=== PATIENT | female | born 1950 | race Caucasian/White ===

== ENCOUNTER 2017-04-01 11:19 | Inpatient (IN) | payer MEDICARE, OTHER ==
[~2017-04-01] VITALS: Ht 175.3 cm; Wt 104.1 kg
[2017-04-01] VITALS (7 sets, daily range): BP systolic 108–128; BP diastolic 65–82; PULSE 77–103; RESP 12–19; O2SAT 91–100
--- NOTE | 2017-04-01 12:45 | DRSVH ---
PROCEDURE: CT BRAIN WITHOUT CONTRAST ([id number]) INDICATIONS: Stroke TECHNIQUE: Noncontrast 4.5 mm thick angled axial sections acquired from the foramen magnum to the vertex, with c oronal reformats. COMPARISON: None. FINDINGS: Image quality: Excellent. CSF spaces: Basal cisterns are patent. No extra-axial fluid collections. The ventricles are symmet ruth in size and shape. Brain: No intracranial bleeds or masses. There is cerebral volume loss for age, with resultant vent ricular and sulcal prominence. There are periventricular and deep white matter chronic small vessel ischemic changes. There is intracranial internal carotid artery atherosclerosis. There is a small f ocus of old left thalamic lacunar ischemia. Skull and face: Calvarium and visualized facial bones appear intact, without suspicious lesions. Sinuses: Visualized sinuses and mastoids are clear. IMPRESSION: 1. No acute intracranial process. 2. Mild atrophy and chronic microvascular ischemic changes. Dictated by: Philly Reeves M.D. on 04/01/2017 at 11:43 Approved by: Philly Reeves M.D. on 04/01/2017 at 11:44
--- NOTE | 2017-04-01 12:52 | ED.REPORT ---
HPI-Neurologic Deficit Date of Service Apr 01, 2017 ED Provider: Doc,Ed MD The patient is a 66 year old female who was sent to the emergency department by her PCP Dr. Sloan. 1 week ago the patient developed left sided weakness and was unable to walk for 2 days. She had a ground level fall when her symptoms began. The weakness has seemed to be intermittent since onset. The patient has been much more tired since the fall and is not acting like herself. She is still weak at this time and also complains of a mild headache and decreased appetite. She denies fever, chills, cough, chest pain, shortness of breath, abdominal pain, nausea, vomiting, diarrhea, dysuria or hematuria. She waited until after the weekend to see her PCP who then sent her here. Nursing Notes Stated Complaint: POSSIBLE STROKE Chief Complaint: Stroke Symptoms Nursing Notes Reviewed: Yes Allergies: Coded Allergies: dipyridamole (Verified Allergy, Severe, GI ISSUES, 04/01/17) nifedipine (Verified Allergy, Severe, HEADACHE, 04/01/17) sertraline (Verified Allergy, Intermediate, NAUSEA, 04/01/17) Scheduled Aspirin (Aspirin) 325 Mg Tablet 325 MG PO DAILY Fluoxetine (Prozac) 20 Mg Capsule 20 MG PO DAILY Gabapentin (Gabapentin) 300 Mg Capsule 600 MG PO HS Hydrochlorothiazide (Hydrochlorothiazide) 25 Mg Tablet 25 MG PO DAILY Insulin Detemir (Levemir Flextouch) 100 Unit/1 Ml Insuln.pen 60 UNIT SQ BID Insuln Asp Prt/Insulin Aspart (NovoLOG 70/30 U100 Insulin Flexpen) 100 Unit/Ml Unit 34 UNIT SUBQ TIDWM Lisinopril (Lisinopril) 20 Mg Tablet 20 MG PO DAILY Memantine (Namenda) 10 Mg Tablet 5 MG PO BID Pravastatin (Pravastatin) 20 Mg Tablet 20 MG PO HS Tolterodine Tartrate ER (Detrol LA) 4 Mg Capsule 4 MG PO DAILY General Time Seen by Provider: 12:55 Chief Complaint Other (left-sided weakness) Hx Obtained From: Patient, Spouse Arrived By: Wheelchair Sudden in Onset?: Yes Onset Occurred: 1 week ago Symptom Duration: Since onset Progression Since Onset: Intermittent Location: : Head Quality: Painful Severity: Current: Mild Severity: Maximum: Mild Recent Healthcare: No recent hospitalization, Recent doctor visit Similar Sx Previous: No Risk Factors NIH Stroke Scale Level of Consciousness: Alert and responsive (0) Ask Month & Age: Both questions right (0) Open/Close Eyes/Hand Chalk Tester: Performs both tasks (0) Horizontal EO Movements: None (0) Visual Lopes: No visual loss (0) Facial Palsy: Normal symmetry (0) Right Arm Motor Drift (10s): No drift 10 sec (0) Left Arm Motor Drift (10s): Drift, not touch bed (1) Right Leg Motor Drift (5s): No drift 5 sec (0) Left Leg Motor Drift (5s): Some effort v gravity (2) Limb Ataxia FNF/Heel-Wallace: No ataxia (0) Sensation (Arms/Legs/Face): No sensory loss (0) Language Aphasia: No aphasia, normal (0) Dysarthria: Slurring intelligible (1) Extinction/Inattention: No exctinct/inattent (0) NIHSS Score: 4 Time NIHSS Performed: 13:19 Date NIHSS Performed: Apr 01, 2017 Past Medical History Past Medical History Hypertension Diabetes mellitus Family History Noncontributory Smoking History Unknown if Ever Smoker Social History Other Social History: Good social support, , Local resident Ambulatory Status Independent Review of Systems Review of Systems Note: +decreased appetite, not acting like herself Constitutional: Reports: Fatigue, Denies: Chills, Fever Respiratory: Denies: Non-productive cough, Prod cough, bloody, Prod cough, brown, Prod cough, clear, Prod cough, green, Prod cough, white, Prod cough, yellow, Shortness of breath Cardiovascular: Denies: Chest pain GI: Denies: Abdominal pain, Diarrhea, Nausea Neurologic: Reports: Focal weakness, Headache, Problem walking, Weakness Psychiatric: Reports: Change mental status Complete sys rev & neg: except as marked. Physical Exam Initial Vital Signs Vital Signs (First) Date Time Temp Pulse Resp B/P Pulse Ox O2 Delivery O2 Flow Rate FiO2 04/01/17 11:22 36.9 103 16 108/78 97 Room Air Initial VS: Reviewed ENT: Mucous membranes moist, Conjunctiva normal, No scleral icterus Neck: Supple, Non-tender, Full range of motion Abdomen / GI: Soft, Non-tender, No guarding, No rebound, No distention Extremities: No swelling Skin: Warm, Dry, No cyanosis Alertness: Positive: Somnolent Head / Eyes: Atraumatic, Normocephalic, PERRL, EOMI Respiratory / Chest: Atraumatic, Breath sounds NL, Breath sounds = bilat, No respiratory distress, No rales, No rhonchi, No wheezing Cardiovascular: Heart rate NL, Regular rhythm, Heart sounds NL, Peripheral circulation NL Neurologic: Oriented X3, Speech NL Focal Weakness: Positive: Lower extremity L Drift on the left side. She is unable to pick her left leg up. Sensation intact. Interpretation & Diagnostics Lab Results Interpretation Result Diagram: 04/01/17 1431 04/01/17 1431 Test 04/01/17 14:31 04/01/17 15:15 White Blood Count 11.2th/mm3 (3.8-10.1) Red Blood Count 5.49mil/mm3 (3.90-5.20) Hemoglobin 14.6g/dL (12.0-15.6) Hematocrit 43.4% (35.0-46.0) Mean Corpuscular Volume 79.1fL (81-100) Mean Corpuscular Hemoglobin 26.6pg (27.0-35.0) Mean Corpuscular Hemoglobin Concent 33.6% (32.0-37.0) Red Cell Distribution Width 15.4% (12.3-15.4) Platelet Count 247bil/L (150-400) Neutrophils (%) (Auto) 61.5% (40-74) Lymphocytes (%) (Auto) 28.1% (14-46) Monocytes (%) (Auto) 9.1% (4-12) Eosinophils (%) (Auto) 0.5% (0-5) Basophils (%) (Auto) 0.4% (0-3) Prothrombin Time 10.7sec (8.1-12.5) Prothromb Time International Ratio 1.00ratio Activated Partial Thromboplast Time 26.6sec (22.8-33.0) Sodium Level 133mEq/L (134-144) Potassium Level 4.6mEq/L (3.5-5.2) Chloride Level 92mEq/L (97-108) Carbon Dioxide Level 25mmol/L (18-29) Blood Urea Nitrogen 30mg/dL (8-27) Creatinine 1.40mg/dL (0.57-1.00) Estimat Glomerular Filtration Rate 54mL/min (>59) Glucose Level 307mg/dL (60-99) Calcium Level 9.9mg/dL (8.5-10.1) Total Bilirubin 0.7mg/dL (0.0-1.2) Aspartate Amino Transf (AST/SGOT) 35U/L (0-50) Alanine Aminotransferase (ALT/SGPT) 34U/L (0-32) Alkaline Phosphatase 84U/L (25-165) Troponin T < 0.010ug/L (0.0-0.011) Total Protein 7.7g/dL (6.4-8.4) Albumin 3.5g/dL (3.4-5.0) Urine Color Yellow (YELLOW) Urine Appearance Clear (CLEAR,HAZY) Urine pH 5.5 (5.0-8.0) Urine Specific Round O 1.015 (1.003-1.035) Urine Protein Tracemg/dL (NEG,TRACE) Urine Glucose (UA) 1000mg/dL (NEGATIVE) Urine Ketones Negativemg/dL (NEGATIVE) Urine Occult Blood Negative (NEGATIVE) Urine Nitrite Negative (NEGATIVE) Urine Bilirubin Negative (NEGATIVE) Urine Urobilinogen Normalmg/dL (NORMAL) Urine Leukocyte Esterase Trace (NEGATIVE) Urine RBC 0-2/hpf (0-2) Urine WBC 11-50/hpf (0-5) Urine Epithelial Cells Few/hpf (NONE-MOD) Urine Crystals None seen (NONE SEEN) Urine Bacteria Few/hpf (NONE-FEW) Urine Hyaline Casts None/lpf (NONE) Urine Granular Casts None seen (NONE SEEN) Urine Waxy Casts None seen (NONE SEEN) Urine Red Blood Cell Casts None seen (NONE SEEN) Urine White Blood Cell Casts None seen (NONE SEEN) Urine Mucus None seen (None Seen) Urine Trichomonas None seen (NONE SEEN) Urine Yeast None (NONE SEEN) Urinalysis Comment None Urine Culture Reflexed Indicated ECG Interpretation ECG Interpretation: Sinus rhythm with a rate of 91 Time: 13:02 Interpreted by: ED physician CT Head Interpretation IMPRESSION: 1. No acute intracranial process. 2. Mild atrophy and chronic microvascular ischemic changes. Dictated by: Philly Reeves M.D. on 04/01/2017 at 11:43 Study: Head CT no contrast Interpretation / Wet Read by: Interpret - Radiologist Re-Eval/Medical Decision Source of Hx: Old records, Family Re-Evaluation/Progress : Time of Eval: 14:15 Re-Evaluation/Progress Note: Discussed plan for admission with the patient and her . All questions were addressed. Consultation : Referral / Consult Name: Jesús Campos MD Consulted With: Hospitalist Call Returned at: 14:42 Senior Systems Software Engineer: Will see patient, Agrees with eval, Agrees with plan, Accepts admit Counseled Regarding: Diagnosis, Lab results, Need for admission Discharge & Departure Impression: Primary Impression: Cerebrovascular accident CVA mechanism: unspecified Qualified Code: I63.9 - Cerebral infarction, unspecified Additional Impressions: Urinary tract infection Urinary tract infection type: acute cystitis Hematuria presence: without hematuria Qualified Code: N30.00 - Acute cystitis without hematuria Dehydration Disposition: ADMITTED TO HOSPITAL Discharge Condition All VS Reviewed: Yes Condition: Stable Referrals: Gadiel Sloan MD (PCP) Scribe Attestation Portions of this note were transcribed by Anusha Forte. I, Dr. Villanueva personally performed the history, physical exam and medical decision-making; I reviewed and confirmed the accuracy of the information in the transcribed note. Signed by: Vitaliy Alas, 04/01/2017 at 1500. copies to: Gadiel Sloan MD, Jena M MD Apr 01, 2017 12:52 Anusha Forte Apr 01, 2017 13:01
[2017-04-01 14:38] LABS: BASOPHILS % (AUTO) 0.4 % (0-3); EOSINOPHILS % (AUTO) 0.5 % (0-5); MONOCYTES % (AUTO) 9.1 % (4-12); Mean Corpuscular Hemoglobin 26.6 pg (27.0-35.0); Mean Corpuscular Volume 79.1 fL (81-100); NEUTROPHILS % (AUTO) 61.5 % (40-74); Platelet Count 247 bil/L (150-400)
[2017-04-01] MEDS ORDERED: ASPI325T32 PO (14:43)
[2017-04-01] MEDS ORDERED: INSU100I25 SQ (14:46)
[2017-04-01] MEDS ORDERED: DETROL LA4 M1 PO (14:46)
[2017-04-01] MEDS ORDERED: GABA-502 PO (14:46)
--- NOTE | 2017-04-01 14:46 | NUR ---
Evaluation completed. Please go to "Notes" then click on "Assessments and Notes" (bottom left corner of screen). Then select appropriate discipline tab on top of screen.
[2017-04-01] MEDS ORDERED: Ondansetron 2 mg/mL 2 mL Inj IVPUSH PRN (14:50)
[2017-04-01] MEDS ORDERED: INSU3INS3 SUBQ (14:52)
[2017-04-01] MEDS ORDERED: HYDR25TA4 PO (14:52)
[2017-04-01] MEDS ORDERED: LISI-567 PO (14:52)
[2017-04-01] MEDS ORDERED: NAM10 PO (14:52)
[2017-04-01] MEDS ORDERED: PROZ20 PO (14:53)
[2017-04-01] MEDS ORDERED: PRAV20TA2 PO (14:53)
--- NOTE | 2017-04-01 14:57 | PCM.HPMED ---
Subjective Date of Service Apr 01, 2017 Primary Provider: Admitting Physician: Primary Care Physician: Gadiel Sloan MD Attending Physician: Chief Complaint: weakness, somnolence History of Present Illness: 66 yo F w/ hx of TIA, uncontrolled DM, HTN, HLD p/w generalized weakness, changes of mental status, Hx obtained mostly by the at the bedside. He stated that she fell down 8days ago, since then she was progressively weaker, being more drowsy. patient at baseline is able to walk w/o assistance going shopping with her grandaughter. noticed, pt became slow to respond, soft spoken.Weakness was on and off, pt was able to walk 3-4days ago during last weekends, since this week. patient was getting weaker, came to see PCP today. noticed more weakness on left side, suspected acute stroke, sent patient to ED> In ED, VS 108 /78, 103, 16, 97% on RA, afebrile, labs showed mild wbc, poly61, bun30/cr1.4, mlm098, Na133, Cl92. UA showed trace leukEST, mpz50-49, few bacteria. patient received one dose of Rocephin. seen at ED at the bed side. patient stated that she was way to her sofa, stumbling to the left side when she fell. hurt her Lt knee. denied LOC per , headache, but was mildly lightheaded, denied chest pain, sob, palpitation, blurry vision.Patient also stated that she had more frequent urination 5-6times/d, which was worse than baseline incontinence, also noticed urgency, no dysuria. pt also had diarrhea since last week until 2days, had normal BM yesterday. pt currently denied any LORA, lightheadedness. pt has decreased appetite with weakness, but able to swallow Banana this morning. compliant to all her meds, including insulin. since this week, glc has been 200s per . patient did inject by herself. ROS: no fever, chills, cough, sputum, Ofnote. Patient has follow-up with Dr. Torres, last seen in 03/04, noted cognitive problems due to multifactorial in the setting of microvascular dz and poorly controlled DM. recommended cognitive rehab and speech tx, referred to neuro-psychology. For spells of decreased attentiveness, suspected probable TIA or seizure or both , EEG ordered. For diabetic neuropathy recommended to take gabapentin 3pills at bed times. MRI brain 09/2015 no evidence of stroke but moderate microvascular micro-bleeds likely due to HTN, again MRI repeated 03/19 showed Punctate susceptibility weighted hypointensities involving the thalami, basal ganglia, frontal lobes and the left cerebral hemisphere. US carotid was <50% stenosis consulted, recommended holding aspirin and get MRI. Review of Systems: Pertinent positives as noted in history of present illness. All other systems were reviewed and are negative Allergies Coded Allergies: dipyridamole (Verified Allergy, Severe, GI ISSUES, 04/01/17) nifedipine (Verified Allergy, Severe, HEADACHE, 04/01/17) sertraline (Verified Allergy, Intermediate, NAUSEA, 04/01/17) Home Medications Jessi RossiZachary [id number] 1950 04/01/2017 09:40 AM Page: 11/03 MEDICATIONS Medication Dose Sig Description Comments aspirin 325 mg tablet,delayed release 325 mg take 1 tablet (325MG) by oral route every day NATHANAEL CONTOUR BLOO STRP TEST THREE TO FOUR TIMES DAILY DETROL LA 4MG CAP 4 mg TAKE ONE CAPSULE BY MOUTH ONCE DAILY Leader Pen [place] 31g. For insulin administration 3-5 times daily gabapentin 300 mg capsule 300 mg take 2-3 tab at bedtime taking 2 in the evening and if needed takes an additional. LEVEMIR FLEXTOUCH INJ 100 unit/mL (3 mL) INJECT 60 UNITS SUBCUTANEOUSLY TWICE DAILY lisinopril 20 mg-hydrochlorothiazide 25 mg tablet 20 mg-25 mg TAKE ONE TABLET BY MOUTH IN THE MORNING need visit memantine 5 mg tablet 5 mg take 1 tablet by oral route 2 times every day metformin ER 500 mg tablet,extended release 24 hr 500 mg take 2 tablets by oral route 2 times every day not taking NOVOLOG FLEXPEN 100UNIT/ML INJ 100 unit/mL INJECT 34 UNITS SUBCUTANEOUSLY THREE TIMES DAILY BEFORE MEAL(S) pravastatin 20 mg tablet 20 mg 1 po QPM Prozac 20 mg capsule 20 mg TAKE ONE CAPSULE BY MOUTH ONCE DAILY IN THE MORNING. START IN 15 DAYS AFTER TAPERS OFF CYMBALTA PMH PANIC ATTACK ROSACEA Fatigue Beatriz CEREBROVASCULAR DISEASE Uncontrolled Type 2 diabetes mellitus, Last a1c10.3 in Memory lapses Vitamin d deficiency Screening for colon cancer Polyneuropathy in Diabetes Mixed hyperlipidemia Screening for breast cancer PERSONAL HISTORY OF ARTHRITIS Surgical History Bariatric surgery Gastric hernia repair Social History Hx Alcohol Use: No Hx Substance Use: No Smoking Status: Unknown if Ever Smoker Additional Information lives with Exam Vital Signs Vital Sign - Last Date Time Temp Pulse Resp B/P Pulse Ox O2 Delivery O2 Flow Rate FiO2 04/01/17 13:51 92 12 119/82 91 Room Air 04/01/17 11:22 36.9 Exam NAD, comfortably laying down on the bed no JVD, MMM, no LAD RRR, nl s1, s2 no mrg CTAB, no w,c S,ND,NT,normoactive BS+ warm, no edema, pulses 2/2 Neuro:speech coherent, but very slow to response, AAOx3, unable to assess gait PERRLA, EOMI, symmetric face, no uvulae tongue deviation, able shrug shoulders equally able rotate neck equally on both sides motor 5/5 throughout, sensory severely decreased on bilateral ext. Lab and Diagnostics Result Diagram: 04/01/17 1431 X-Rays, CTs and MRIs PROCEDURE: CT BRAIN WITHOUT CONTRAST ([id number]) INDICATIONS: Stroke TECHNIQUE: Noncontrast 4.5 mm thick angled axial sections acquired from the foramen magnum to the vertex, with coronal reformats. COMPARISON: None. FINDINGS: Image quality: Excellent. CSF spaces: Basal cisterns are patent. No extra-axial fluid collections. The ventricles are symmetric in size and shape. Brain: No intracranial bleeds or masses. There is cerebral volume loss for age , with resultant ventricular and sulcal prominence. There are periventricular and deep white matter chronic small vessel ischemic changes. There is intracranial internal carotid artery atherosclerosis. There is a small focus of old left thalamic lacunar ischemia. Skull and face: Calvarium and visualized facial bones appear intact, without suspicious lesions. Sinuses: Visualized sinuses and mastoids are clear. IMPRESSION: 1. No acute intracranial process. 2. Mild atrophy and chronic microvascular ischemic changes. Dictated by: Philly Reeves M.D. on 04/01/2017 at 11:43 Approved by: Philly Reeves M.D. on 04/01/2017 at 11:44 PROCEDURE: X-RAY CHEST ONE VIEW, PORTABLE ([id number]) INDICATIONS: 66 year-old female with weakness. TECHNIQUE: One view of the chest was acquired. COMPARISON: None. FINDINGS: Surgical changes and devices: Bilateral upper abdominal surgical clips are present. Lungs and pleura: No pleural effusions or pneumothorax. Lungs are clear. Mediastinum: Mediastinal contours appear normal. Heart size is normal. Bones and chest wall: No suspicious bony lesions. Overlying soft tissues appear unremarkable. IMPRESSION: No acute cardiopulmonary disease. Dictated by: Naun Ferrell M.D. on 04/01/2017 at 15:48 Approved by: Naun Ferrell M.D. on 04/01/2017 at 15:49 PROCEDURE: MRI BRAIN WITHOUT CONTRAST ([id number]) INDICATIONS: SPELLS OF ALTERED ALERTNESS WITH JAW CHANGES, TIA TECHNIQUE: Non-contrast axial T1 spin echo, axial T2 fast spin echo, sagittal and axial FLAIR, coronal T2 fast spin echo, axial gradient echo, axial diffusion and ADC through the brain. COMPARISON: Outside Film, MR, MR IAC'S MASTOIDS W&WO CON, 11/26/2008, 8:21. MR , STROKE PROTOCOL (PN), 01/17/2009, 7:58. Byron Waters, , MR BRAIN WO CON, 09/11/2015, 13:50. FINDINGS: Image quality: Excellent. CSF spaces: Ventricles appear symmetric in size and shape. Basal cisterns are patent. No extra-axial fluid collections. Brain: No intracranial bleeds or mass effects. There is cerebral volume loss for age. There are moderate periventricular and deep white matter chronic small vessel ischemic changes which are not significantly changed compared to . Brainstem appears normal. Diffusion-weighted images show no acute ischemic insults. Chronic, small, right centrum semiovale lacunar infarct is stable compared to 09/11/2015. Punctate foci of susceptibility weighted hypointensities noted in the thalami bilaterally, the frontal lobes bilaterally the basal ganglia and in the left cerebral hemisphere. Normal intravascular flow voids are present. Skull and face: Calvarial bone marrow is normal in signal. Orbits are normal. Sinuses: Small left maxillary sinus mucous retention cyst versus polyp is noted. mastoids are clear. IMPRESSION: 1. No acute intracranial disease process. 2. Mild, diffuse volume loss. 3. Moderate periventricular and subcortical white matter chronic microvascular ischemic changes. 4. Chronic right anterior centrum semiovale infarct. 5. Punctate susceptibility weighted hypointensities involving the thalami, basal ganglia, frontal lobes and the left cerebral hemisphere. Finding is nonspecific but is most concerning for chronic hypertensive microbleeds. Please correlate with clinical data. Dictated by: Lucrecia Jhaveri MD, PhD on 03/19/2017 at 16:33 Approved by: Lucrecia Jhaveri MD, PhD on 03/19/2017 at 16:42 Assessment & Plan Acute, active decrease of attentiveness, generalized weakness, POA, CTH no acute findings, multifactorial: new onset UTI, underlying microbleeds, probable new small ischemic stroke. no s/s of LEAD FABRICATOR infection. no hx of seizures. -given consistent microbleeds in multiple areas, hold off asa, awaits further input from -repeat MRI of brain -will monitor neurocheck q4h to see if MS improves with current tx probable UTI, POA, UA+ for pyuria, bacteriuria. labs mildly elevated leukocytosis, no SIRS -s/p Rocephin in ED, continue for now ground level fall >8days ago, likely due to above-mentioned problem. -telemetry -EKG -appreciate daily PT DM, POA, a1c>10 in Apr, uncontrolled, glc has been lebile 60-500 per hx -lantus 30unit bid, lispro SS low correctional for now, will adjust based on fsg -hold metformin -continue gabapentin Chronic, stable hx of CVA, hold off on asa, continue statin HTN, will continue BP meds given previous MRI findings, despite no acute bleeds in CTH cognitive dysfunction, will follow up with rec, continue prozac, memantin dispo:Patient will be admitted with inpatient status with expectation of inpatient therapy for more than 2 midnights diet:Puree, med crushed per s/s eval dvt ppx:SCD Full code Time spent 65 minutes Jesús Campos MD Apr 01, 2017 14:57
[2017-04-01] MEDS ORDERED: Glucose 40% Oral Gel 15 Gm Tube PO PRN (15:15)
[2017-04-01 15:17] LABS: TROPONIN T < 0.010 ug/L (0.0-0.011)
[2017-04-01] MEDS ORDERED: 0.9% Sodium Chloride 1,000 ML IV ONE (15:20)
[2017-04-01 15:28] LABS: APPEARANCE,URINE CLEAR (CLEAR,HAZY); COLOR,URINE YELLOW (YELLOW); OCCULT BLOOD,URINE NEGATIVE (NEGATIVE); PH,URINE 5.5 (5.0-8.0); UROBILINOGEN,URINE NORMAL (NORMAL)
[2017-04-01] MEDS ORDERED: cefTRIAXone Inj 1,000 MG in Dextrose 5% Minibag Plus 50 ML IV ONE (15:35)
--- NOTE | 2017-04-01 15:50 | DRSVH ---
PROCEDURE: X-RAY CHEST ONE VIEW, PORTABLE ([id number]) INDICATIONS: 66 year-old female with weakness. TECHNIQUE: One view of the chest was acquired. COMPARISON: None. FINDINGS: Surgical changes and devices: Bilateral upper abdominal surgical clips are present. Lungs and pleura: No pleural effusions or pneumothorax. Lungs are clear. Mediastinum: Mediastinal contours appear normal. Heart size is normal. Bones and chest wall: No suspicious bony lesions. Overlying soft tissues appear unremarkable. IMPRESSION: No acute cardiopulmonary disease. Dictated by: Naun Ferrell M.D. on 04/01/2017 at 15:48 Approved by: Naun Ferrell M.D. on 04/01/2017 at 15:49
--- NOTE | 2017-04-01 16:53 | NUR ---
Admit: Patient arrived to [facility] @ approx 1615 via stretcher. Transferred from stretcher to bed using slider board. 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 VSS. Oriented to room and call light system. at bedside. Denies pain and shortness of breath. Bed in low and locked position, bedrails up x2, yellow socks on for safety, call light within reach. Addendum: 04/01/17 at 1703 by EVERTON LESTER RN Telemetry box #[id number] on, SR 75 per home theatre technician.
[2017-04-01] MEDS: Insulin LISPRO 300 Unit/3 mL Inj SUBQ SCH ×2 (18:15→22:23)
[2017-04-01] MEDS ORDERED: Insulin GLARgine 100 Unit/mL Syringe SUBQ SCH (20:30)
--- NOTE | 2017-04-01 21:04 | DRSVH ---
PROCEDURE: MRI STROKE PROTOCOL ([id number]) Pre- and post-contrast brain MRI, non-contrast brain MR angiogram, pre- and postcontrast neck MR andi ogram INDICATIONS: 66 year-old female with poorly controlled diabetes, and cognitive deficits. TECHNIQUE: Brain: Noncontrast axial T1 spin echo, axial T2 fast spin echo, sagittal and axial FLAIR, coronal T2 fast spin echo, axial gradient echo, axial diffusion and ADC through the brain. After the administr ation of contrast, axial 3D VIBE of the cranial vasculature and brain. Brain MRA: Non-contrast 3-D time of flight MR angiogram, with multiple unwrrkx-pkwuzpawr-regtwzwisi (MIP) reformats performed. Neck MRA: Axial and sagittal TruFISP through the neck. Coronal dynamic MR angiogram during administ ration of contrast in the arterial and venous phases, with 3-dimenstional vgovnnk-wskermpzv-ozgwtlosl n (MIP) reformats constructed from subtraction images. COMPARISON: [facility], CT, CT BRAIN WO CON, 04/01/2017, 12:26. [facility], MR, MR BRAIN WO CON, 03/19/2017, 15:14. [facility], MR, STROKE PROTOCOL (PN), 009, 7:58. FINDINGS: Image quality: Excellent. BRAIN: CSF spaces: Ventricles are normal in size and shape. Basal cisterns are patent. No extra-axial flu id collections. Brain: No intracranial bleeds or mass effects. There is background periventricular and deep white ma tter chronic small vessel ischemic change. Diffusion weighted images demonstrate asymmetric acute isc hemic insult in a curvilinear distribution within the right anterior centrum semi-ovale. Brainstem a ppears normal. Normal intravascular flow voids are present. No abnormal intracranial enhancement. Skull and face: Calvarial marrow signal is normal. Patient is status post cataract surgeries. Sinuses: Sinuses and mastoids are clear. BRAIN MR ANGIOGRAM: Anterior circulation: Intracranial internal carotid arteries are normal in size and enhancement. Di ffuse stenosis within the right A1 and A2 segments appears new since 2008. The flow within the paired anterior cerebral arteries is normal and symmetric. The flow within the middle cerebral arteries is normal and symmetric. The anterior communicating artery is seen. No stenoses, occlusions, or aneur ysms. Posterior circulation: The visualized portions of the vertebral arteries demonstrate normal caliber, and join to form a normal appearing basilar artery. The flow within the posterior cerebral arteries is normal and symmetric. No stenoses, occlusions, or aneurysms. NECK MR ANGIOGRAM: Carotids: Great vessels demonstrate a conventional anatomy as they arise from the aortic arch. The origins of the common carotid arteries appear patent. The calibers and courses of both common caroti d arteries are normal. The bifurcation regions appear normal bilaterally. The internal carotid chidi anastacia demonstrate normal course and caliber. Posterior circulation: The origins of the co-dominant vertebral arteries appear patent. More superi or portions of both vertebral arteries demonstrate normal course and caliber, and join to form a norm al appearing basilar artery. Miscellaneous: Subclavian arteries appear patent. Pre-contrast images through the neck demonstrate diffuse thyromegaly. IMPRESSION: BRAIN MRI: 1. Findings consistent with evolving acute ischemic insult within the right anterior cerebral artery distribution. 2. Background periventricular and deep white matter chronic small vessel ischemic change. BRAIN MR ANGIOGRAM: Interval development of high grade narrowing of the right A1 and A2 segments since 2008, probably rep resenting intraluminal thrombus in the setting of corresponding acute ischemic insult. NECK MR ANGIOGRAM: No hemodynamically significant lesions of the extracranial neck vasculature. Dictated by: Naun Ferrell M.D. on 04/01/2017 at 20:46 Approved by: Naun Ferrell M.D. on 04/01/2017 at 21:03
[2017-04-02] VITALS (8 sets, daily range): BP systolic 122–148; BP diastolic 75–89; PULSE 69–97; RESP 16–18; O2SAT 94–97
--- NOTE | 2017-04-02 01:08 | NUR ---
Mobility Pt asked to use the restroom, 2X assist w/gait belt to BSC. Incontinent of bowel 1X, continent 1X. Pt has reported no pain. No CP or SOB. Her is sleeping in the room with her. Hourly rounding ongoing.
--- NOTE | 2017-04-02 05:41 | NUR ---
Activity See previous note by student RN. Pt remains on Tele SR, comfortable, and spouse in room. No further loose BM or incontinence this shift. Care continues
[2017-04-02 06:11] LABS: BASOPHILS % (AUTO) 0.3 % (0-3); MONOCYTES % (AUTO) 8.6 % (4-12); Mean Corpuscular Hemoglobin 26.9 pg (27.0-35.0); Mean Corpuscular Volume 80.5 fL (81-100); NEUTROPHILS % (AUTO) 52.6 % (40-74); Platelet Count 176 bil/L (150-400)
[2017-04-02 06:43] LABS: Magnesium 2.1 mg/dL (1.6-2.6); Phosphorus 4.6 mg/dL (2.5-4.9)
[2017-04-02] MEDS ORDERED: cefTRIAXone Inj 2,000 MG in Dextrose 5% Minibag Plus 50 ML IV SCH (07:30)
[2017-04-02] MEDS ORDERED: Insulin GLARgine 100 Unit/mL Syringe SUBQ SCH (08:30)
[2017-04-02] MEDS: Insulin LISPRO 300 Unit/3 mL Inj SUBQ SCH ×2 (10:21→12:08)
[2017-04-02] MEDS: Amoxicillin-Clav 500-125 mg Tablet PO SCH ×2 (10:21→20:52)
--- NOTE | 2017-04-02 10:45 | NUR ---
Case Management: IMM given and explained to pt and . Lisandra AMES RN
[2017-04-02] MEDS ORDERED: Insulin Human REGular Inj 100 UNIT in 0.9% Sodium Chloride-Pha MIX 100 ML IV SCH (12:40)
--- NOTE | 2017-04-02 12:44 | PCM.PNMED ---
Subjective Date of Service Apr 02, 2017 Subjective pt was more alert and remained oriented, fast to response, denied LORA, dizziness , c/o mild weakness on left side, eating well, MRI showed FERCHO territory infarc Exam Vital Signs Vital Sign - Last Date Time Temp Pulse Resp B/P Pulse Ox O2 Delivery O2 Flow Rate FiO2 04/02/17 12:03 36.9 78 18 139/86 94 Room Air Intake and Output 04/01/17 04/01/17 04/02/17 Cumulative From/Thru 15:00 23:00 07:00 04/01/17 11:22 - 04/02/17 06:26 Intake Total 200 ml 200 ml Output Total 300 ml 300 ml Balance -300 ml 200 ml -100 ml Intake Oral 200 ml 200 ml Output Urine Total 300 ml 300 ml # Bowel Movements 2 2 Exam NAD, comfortably laying down on the bed no JVD, MMM, no LAD RRR, nl s1, s2 no mrg CTAB, no w,c S,ND,NT,normoactive BS+ warm, no edema, pulses 2/2 Neuro:speech coherent, but very slow to response, AAOx3, unable to assess gait PERRLA, EOMI, symmetric face, no uvulae tongue deviation, able shrug shoulders equally able rotate neck equally on both sides motor 5/5 throughout, sensory severely decreased on bilateral ext. IVs and Medications Medications Reviewed: Medications were reviewed in detail Lab and Diagnostics Result Diagram: 04/02/17 0535 04/02/17 0535 X-Rays, CTs and MRIs PROCEDURE: CT BRAIN WITHOUT CONTRAST ([id number]) INDICATIONS: Stroke TECHNIQUE: Noncontrast 4.5 mm thick angled axial sections acquired from the foramen magnum to the vertex, with coronal reformats. COMPARISON: None. FINDINGS: Image quality: Excellent. CSF spaces: Basal cisterns are patent. No extra-axial fluid collections. The ventricles are symmetric in size and shape. Brain: No intracranial bleeds or masses. There is cerebral volume loss for age , with resultant ventricular and sulcal prominence. There are periventricular and deep white matter chronic small vessel ischemic changes. There is intracranial internal carotid artery atherosclerosis. There is a small focus of old left thalamic lacunar ischemia. Skull and face: Calvarium and visualized facial bones appear intact, without suspicious lesions. Sinuses: Visualized sinuses and mastoids are clear. IMPRESSION: 1. No acute intracranial process. 2. Mild atrophy and chronic microvascular ischemic changes. Dictated by: Philly Reeves M.D. on 04/01/2017 at 11:43 Approved by: Philly Reeves M.D. on 04/01/2017 at 11:44 PROCEDURE: X-RAY CHEST ONE VIEW, PORTABLE ([id number]) INDICATIONS: 66 year-old female with weakness. TECHNIQUE: One view of the chest was acquired. COMPARISON: None. FINDINGS: Surgical changes and devices: Bilateral upper abdominal surgical clips are present. Lungs and pleura: No pleural effusions or pneumothorax. Lungs are clear. Mediastinum: Mediastinal contours appear normal. Heart size is normal. Bones and chest wall: No suspicious bony lesions. Overlying soft tissues appear unremarkable. IMPRESSION: No acute cardiopulmonary disease. Dictated by: Naun Ferrell M.D. on 04/01/2017 at 15:48 Approved by: Naun Ferrell M.D. on 04/01/2017 at 15:49 PROCEDURE: MRI BRAIN WITHOUT CONTRAST ([id number]) INDICATIONS: SPELLS OF ALTERED ALERTNESS WITH JAW CHANGES, TIA TECHNIQUE: Non-contrast axial T1 spin echo, axial T2 fast spin echo, sagittal and axial FLAIR, coronal T2 fast spin echo, axial gradient echo, axial diffusion and ADC through the brain. COMPARISON: [facility], MR, MR IAC'S MASTOIDS W&WO CON, 11/26/2008, 8:21. MR , STROKE PROTOCOL (PNL), 01/17/2009, 7:58. [facility] [place], , MR BRAIN WO CON, 09/11/2015, 13:50. FINDINGS: Image quality: Excellent. CSF spaces: Ventricles appear symmetric in size and shape. Basal cisterns are patent. No extra-axial fluid collections. Brain: No intracranial bleeds or mass effects. There is cerebral volume loss for age. There are moderate periventricular and deep white matter chronic small vessel ischemic changes which are not significantly changed compared to . Brainstem appears normal. Diffusion-weighted images show no acute ischemic insults. Chronic, small, right centrum semiovale lacunar infarct is stable compared to 09/11/2015. Punctate foci of susceptibility weighted hypointensities noted in the thalami bilaterally, the frontal lobes bilaterally the basal ganglia and in the left cerebral hemisphere. Normal intravascular flow voids are present. Skull and face: Calvarial bone marrow is normal in signal. Orbits are normal. Sinuses: Small left maxillary sinus mucous retention cyst versus polyp is noted. mastoids are clear. IMPRESSION: 1. No acute intracranial disease process. 2. Mild, diffuse volume loss. 3. Moderate periventricular and subcortical white matter chronic microvascular ischemic changes. 4. Chronic right anterior centrum semiovale infarct. 5. Punctate susceptibility weighted hypointensities involving the thalami, basal ganglia, frontal lobes and the left cerebral hemisphere. Finding is nonspecific but is most concerning for chronic hypertensive microbleeds. Please correlate with clinical data. Dictated by: Lucrecia Jhaveri MD, PhD on 03/19/2017 at 16:33 Approved by: Lucrecia Jhaveri MD, PhD on 03/19/2017 at 16:42 Assessment & Plan Acute, active decrease of attentiveness, generalized weakness, POA, CTH no acute findings, MRI showed new ischemic stroke in FERCHO territories, likely subacute given hx -continue aspirin, statin -PT, OT, s/s, optimize dispo. -discussed at length regarding controlling risk factors UTI, POA, UA+ for pyuria, bacteriuria. labs mildly elevated leukocytosis, resolved, no SIRS, UCX showed beta strep -s/p Rocephin for 2days, switch to Augmentin to finish 5days course ground level fall >8days ago, likely in the setting of acute stroke -appreciate daily PT DM, POA, a1c>10 in Apr, uncontrolled, glc has been lebile 60-500 per hx, fsg>400 , remained uncontrolled -increase lantus 50unit bid, will try insulin gtt until <200, then switch back to lispro highcorrectional SS -hold metformin -continue gabapentin -pt needs endocrine follow up for further DM management. Chronic, stable HTN, hold BP meds, cognitive dysfunction, will follow up with Dr.Brettel duran, continue prozac, memantin dispo:1-2more days, optimize dispo. likely SNF diet:Puree, med crushed per s/s eval dvt ppx:SCD Full code VTE Mechanical Devices: Intermittant Pneumatic CD Time spent 35min Jesús Campos MD Apr 02, 2017 12:40
--- NOTE | 2017-04-02 14:39 | NUR ---
Social Work: Initial Assessment D: EMR reviewed. Pt is a 66 y/o female admitted for CVA per H&P. DAVID met with pt and spouse at bedside to conduct initial assessment. Pt was not an accurate historian due to CVA. SW explained role and wrote phone number on white board. SW conducted initial assessment with spouse, Maximiliano Rossi ([phone]) who can be contacted for discharge planning.SW provided pt and spouse with DPOA/advanced directive ppw at spouses request and encouraged pt and spouse to provide a copy to the hospital when complete. Pt's insurance is Medicare and [employer]. Pt's PCP is Gadiel Sloan MD. Pt has no Hx of HH or SNF. Pt has no LTC or VA insurance. Pt is independent with ADLs. Pt owns a cane but no other DME. Pt does not drive. Pt is independent at baseline. Pt lives with her spouse in a single-story double-wide trailer with a ramp to enter in [place]. recommends SNF for pt as of 04/01. placed SW consult to discuss SNF with pt. SW provided pt and spouse with choice list. Pt and spouse will discuss and choose SNF /3. SW will follow-up with pt for SNF choice. SW will continue to follow for needs. A: Pt for whom a SNF has been deemed medically necessary. P: Pt likely to discharge to SNF. SW to follow-up with pt and spouse 3 for SNF choice. SW will continue to follow for needs. LISA Avila Addendum: 04/02/17 at 1446 by ELIF HANDLEY Amended: Links added.
--- NOTE | 2017-04-02 14:50 | NUR ---
NUTRITION ASSESSMENT: ASSESS: 66YO F admit with CVA. Diet texture modified per ST, appears well tolerated with good po intake. Pt noted to have A1c of >10 in January per MD notes. PMHX:DM,HTN,TIA DIET: Puree Thin Liquids. PO 75% x 1 meal LABS: Alb 3.2, Glu 345 MEDS:Reviewed GI:2 BM 6/2 WEIGHT: 104.1kg BMI: 33.9 EST.NEEDS: OBESITY (20-22kcal/kg;1.2-1.5g/kg IBW) Kcal: 1058-3169 Pro: 80-100g NUTRITION DIAGNOSIS: (1) Chew/swallowing difficulty related to dysphagia as evidenced by modified diet texture per ST. (2) Altered nutrition related laboratory values related to uncontrolled diabetes as evidenced by A1c >10 in January, glu 345. INTERVENTION: (1) Diet per ST (2) Will discuss diabetic diet and provide materials for outpatient diabetic program, possible referral if pt amenable. MONITOR/EVALUATE: PO intake, texture tolerance, labs. F/U per moderate risk.
--- NOTE | 2017-04-02 15:08 | CONS ---
[address] [address] CONSULTATION REPORT PATIENT: HUNTER SPARROW : 1950 MR#: [id number] ADMIT: 04/01/2017 JOB ID: [id number] DATE OF SERVICE: 04/02/2017 NEUROLOGY CONSULT: REQUESTING PHYSICIAN: Dr. Campos. REASON FOR CONSULTATION: Acute stroke. HISTORY OF PRESENT ILLNESS: The patient is a 66-year-old female, known to me, who was admitted with left hemiplegia and aphasia from her primary care physician's office. Symptoms began last Wednesday after a fall. Her Rodriguez who is at the bedside and helps to provide the history states that she had had weakness on the left side for quite some time and did not think that it was an acute change. He does admit that she laid on the floor all night because he could not get her up. She began having speech problems on Wednesday morning. He made an appointment to see Dr. Sloan, who sent them to the emergency department with concern for acute stroke. I have personally reviewed the MRI of the brain done stroke protocol from April 01, 2017, which shows an acute stroke in the right anterior circulation with diffuse stenoses in the right A1 and A2 segments. This study was not compared to the previous study completed earlier in the month on the other magnet that shows multiple areas of susceptibility weighted abnormalities consistent with microhemorrhages from hypertension. There were no other areas of significant stenosis on the intracranial or extracranial arteries. The patient's reports that although his was completely hemiplegic this has gradually improved and today, she is able to lift her arm and leg on the left side without difficulty. The previously seen speech problems have now resolved but were not clearly identified. Rodriguez, the patient's , reports she is now able to speak but with slowed responses. Cognitively, she appears otherwise intact. In the emergency department she was noted to have a normal blood pressure. She also had a UTI. Her diabetes is poorly controlled with fluctuating levels even at home. Glucose was 345 this a.m. The patient's cardiac rhythm has been normal sinus rhythm. Her reports that she was diagnosed with borderline sleep apnea. He states that she only sleeps between 4 a.m. and noon every day. PAST MEDICAL HISTORY, SOCIAL HISTORY, FAMILY HISTORY AND DRUG ALLERGIES: Unchanged from the neurology outpatient consultation note in [facility] dated March 04, 2017. REVIEW OF SYSTEMS: As per the history of present illness. All other systems were reviewed and reported as negative except as noted above. MEDICATIONS: 1. Aspirin 162 mg aspirin. 2. Prozac. 3. Namenda. 4. Oxacillin. 5. Gabapentin. 6. Pravastatin 20 mg. 7. Ondansetron. 8. Tylenol. 9. Dextrose p.r.n. None given. PHYSICAL EXAMINATION: The patient's vital signs are stable. Blood pressure 138/86, pulse oximetry 94%. Pulse is 74, respiratory rate 18. The patient is afebrile. Head normocephalic, atraumatic. No evidence of carotid bruits. Lungs clear to auscultation. Cardiac: Regular rate and rhythm. S1, S2 present. No edema or lesions noted. NEUROLOGIC EXAMINATION: The patient is alert and oriented x3, with language and speech intact and fluent. Slowed answers but no obvious cognitive impairment or encephalopathy. Mood euthymic. Cranial nerves: Pupils equally reactive to light and accommodation. Extraocular movements intact. No facial asymmetry. Sensation intact on the face bilaterally. Tongue midline. Palate raises symmetrically. Visual ugalde show diminished right visual hemifield bilaterally. Motor strength: Pronator drift and 4/5 strength noted on the left compared to the right. Deep tendon reflexes 1+ throughout symmetrically with plantar reflex extensor on the left, plantar on the right. Tone: Intact upper and lower extremities. Sensation: Diminished to pinprick and soft touch left side compared to the right. No double simultaneous extinction. Coordination: Intact when strength is taken into consideration throughout. Gait: Deferred due to weakness. LABORATORY STUDIES: As per the history of present illness. LDL cholesterol 20. Creatinine 1.05. IMAGING STUDIES: As per the history of present illness. Acute stroke in the right anterior circulation with A1 stenosis. IMPRESSION AND RECOMMENDATION: The patient is a 66-year-old female with acute stroke in the right anterior circulation associated with left hemiplegia. The patient's symptoms are improving. The last MRI also showed evidence of susceptibility weighted abnormalities consistent with hypertensive microbleeds. The patient's cholesterol is low but glucose is poorly controlled, and she appears to have sleep problems. Echocardiogram is still pending. I did not see the echocardiogram requested at this time, and we will defer to the hospitalist to make sure the entire stroke order set is followed for this acute stroke patient. Her presentation is somewhat problematic given the microhemorrhages. Since this was an ischemic stroke, however, I did not recommend discontinuation of aspirin. I would recommend 81 mg aspirin, however, and not a higher dose. Although there is evidence of intracranial stenosis, the patient's cholesterol levels are extremely low and increasing anticholesterol medications may increase the chance of intracranial bleeding. Further and more aggressive management of the patient's diabetes, encouraging weight loss and evaluating for sleep apnea or sleep-related issues causing her insomnia is advised. I suggested overnight pulse oximetry to get a sense of pulse ox. I am available to discuss this patient further as needed. I agree with rehab and followup with her primary care physician for management of her cardiovascular risks. Please call if needed. Will sign off for now. LEATHA
[2017-04-02] MEDS ORDERED: Dextrose 5% 0.45% NaCl 1,000 ML IV PRN (16:02)
--- NOTE | 2017-04-02 19:18 | NUR ---
Neuro Pt is alert and oriented. Slight left-sided weakness. She is able to move all extremeties. Speech delay has improved throughout shift. Pt is tolerating pureed diet with thins, no signs symptoms of aspiration. Pt up with PT today but demonstrated increased left sided weakness, dizziness and lightheadedness.
[2017-04-03] VITALS (8 sets, daily range): BP systolic 104–140; BP diastolic 67–87; PULSE 83–99; RESP 16–18; O2SAT 95–96
--- NOTE | 2017-04-03 05:56 | NUR ---
Neuro / Insulin gtt Pt neuro checks remain unchanged- slight L pupil delay, slight L scaffolding helper weakness. Pt did not ambulate or get OOB this shift, incontinent of urine. No evidence of aspiration. remains in room. Pt A/O and responds slowly. Insulin GTT reaches goal range 6/2 at 2255 and remains in goal. Pt intake one ensure shake and one chocolate pudding this shift, minimal appetite and does not enjoy pureed foods. Care continues.
[2017-04-03] MEDS: Amoxicillin-Clav 500-125 mg Tablet PO SCH ×2 (08:14→22:45)
[2017-04-03] MEDS ORDERED: Insulin GLARgine 100 Unit/mL Syringe SUBQ SCH (08:30)
[2017-04-03] MEDS: Insulin Human REGular Inj 100 UNIT in 0.9% Sodium Chloride-Pha MIX 100 ML IV SCH ×2 (10:55→21:32)
--- NOTE | 2017-04-03 12:52 | PCM.PNMED ---
Subjective Date of Service Apr 03, 2017 Subjective pt is more alert, doing well, denied anyother complaints, still weak on left but close to baseline, aspirin switched to 81mg per Exam Vital Signs Vital Sign - Last Date Time Temp Pulse Resp B/P Pulse Ox O2 Delivery O2 Flow Rate FiO2 04/03/17 10:32 99 04/03/17 09:43 36.5 16 125/82 96 Room Air Intake and Output 04/02/17 04/02/17 04/03/17 Cumulative From/Thru 15:00 23:00 07:00 04/01/17 11:22 - 04/03/17 06:27 Intake Total 829 ml 745 ml 1774 ml Output Total 842 ml 697 ml 1839 ml Balance -13 ml 48 ml -65 ml Intake Oral 680 ml 150 ml 1030 ml IV Total 149 ml 595 ml 744 ml Output Urine Total 842 ml 697 ml 1839 ml # Bowel Movements 0 2 Exam NAD, comfortably laying down on the bed no JVD, MMM, no LAD RRR, nl s1, s2 no mrg CTAB, no w,c S,ND,NT,normoactive BS+ warm, no edema, pulses 2/2 Neuro:speech coherent,AAOX3, appropriately answered, CN2-12 grossly intact IVs and Medications Medications Reviewed: Medications were reviewed in detail Lab and Diagnostics Result Diagram: 04/02/17 0535 04/03/17 0540 X-Rays, CTs and MRIs PROCEDURE: CT BRAIN WITHOUT CONTRAST ([id number]) INDICATIONS: Stroke TECHNIQUE: Noncontrast 4.5 mm thick angled axial sections acquired from the foramen magnum to the vertex, with coronal reformats. COMPARISON: None. FINDINGS: Image quality: Excellent. CSF spaces: Basal cisterns are patent. No extra-axial fluid collections. The ventricles are symmetric in size and shape. Brain: No intracranial bleeds or masses. There is cerebral volume loss for age , with resultant ventricular and sulcal prominence. There are periventricular and deep white matter chronic small vessel ischemic changes. There is intracranial internal carotid artery atherosclerosis. There is a small focus of old left thalamic lacunar ischemia. Skull and face: Calvarium and visualized facial bones appear intact, without suspicious lesions. Sinuses: Visualized sinuses and mastoids are clear. IMPRESSION: 1. No acute intracranial process. 2. Mild atrophy and chronic microvascular ischemic changes. Dictated by: Philly Reeves M.D. on 04/01/2017 at 11:43 Approved by: Philly Reeves M.D. on 04/01/2017 at 11:44 PROCEDURE: X-RAY CHEST ONE VIEW, PORTABLE ([id number]) INDICATIONS: 66 year-old female with weakness. TECHNIQUE: One view of the chest was acquired. COMPARISON: None. FINDINGS: Surgical changes and devices: Bilateral upper abdominal surgical clips are present. Lungs and pleura: No pleural effusions or pneumothorax. Lungs are clear. Mediastinum: Mediastinal contours appear normal. Heart size is normal. Bones and chest wall: No suspicious bony lesions. Overlying soft tissues appear unremarkable. IMPRESSION: No acute cardiopulmonary disease. Dictated by: Naun Ferrell M.D. on 04/01/2017 at 15:48 Approved by: Naun Ferrell M.D. on 04/01/2017 at 15:49 PROCEDURE: MRI BRAIN WITHOUT CONTRAST ([id number]) INDICATIONS: SPELLS OF ALTERED ALERTNESS WITH JAW CHANGES, TIA TECHNIQUE: Non-contrast axial T1 spin echo, axial T2 fast spin echo, sagittal and axial FLAIR, coronal T2 fast spin echo, axial gradient echo, axial diffusion and ADC through the brain. COMPARISON: Outside Film, MR, MR IAC'S MASTOIDS W&WO CON, 11/26/2008, 8:21. MR , STROKE PROTOCOL (PNL), 01/17/2009, 7:58. Mono Davison, , MR BRAIN WO CON, 09/11/2015, 13:50. FINDINGS: Image quality: Excellent. CSF spaces: Ventricles appear symmetric in size and shape. Basal cisterns are patent. No extra-axial fluid collections. Brain: No intracranial bleeds or mass effects. There is cerebral volume loss for age. There are moderate periventricular and deep white matter chronic small vessel ischemic changes which are not significantly changed compared to . Brainstem appears normal. Diffusion-weighted images show no acute ischemic insults. Chronic, small, right centrum semiovale lacunar infarct is stable compared to 09/11/2015. Punctate foci of susceptibility weighted hypointensities noted in the thalami bilaterally, the frontal lobes bilaterally the basal ganglia and in the left cerebral hemisphere. Normal intravascular flow voids are present. Skull and face: Calvarial bone marrow is normal in signal. Orbits are normal. Sinuses: Small left maxillary sinus mucous retention cyst versus polyp is noted. mastoids are clear. IMPRESSION: 1. No acute intracranial disease process. 2. Mild, diffuse volume loss. 3. Moderate periventricular and subcortical white matter chronic microvascular ischemic changes. 4. Chronic right anterior centrum semiovale infarct. 5. Punctate susceptibility weighted hypointensities involving the thalami, basal ganglia, frontal lobes and the left cerebral hemisphere. Finding is nonspecific but is most concerning for chronic hypertensive microbleeds. Please correlate with clinical data. Dictated by: Lucrecia Jhaveri MD, PhD on 03/19/2017 at 16:33 Approved by: Lucrecia Jhaveri MD, PhD on 03/19/2017 at 16:42 Assessment & Plan Acute, active decrease of attentiveness, left sided weakness, POA, CTH no acute findings, MRI showed new ischemic stroke in Rt [place]ER[place] territories, likely subacute given hx -continue aspirin s/p 325, 162mg, changed to 81mg today,continue statin -PT, OT, s/s, optimize dispo, SNF -discussed at length regarding controlling risk factors -TTE to see emboli UTI, POA, UA+ for pyuria, bacteriuria. labs mildly elevated leukocytosis, resolved, no SIRS, UCX showed beta strep -s/p Rocephin for 2days, switch to Augmentin to finish 5days course ground level fall >8days ago, likely in the setting of acute stroke -appreciate daily PT DM, POA, a1c>10 in Apr, uncontrolled, glc has been lebile 60-500 per hx, fsg>400 , insulin gtt /- -controlled with insulin gtt, will bridge with lantus home dose, -lantus 50unit bid, lispro high correctional SS -hold metformin -continue gabapentin -pt needs endocrine follow up for further DM management. Chronic, stable HTN, continue bp meds cognitive dysfunction, will follow up with Dr.Brettel duran, continue prozac, memantin dispo:1-2more days, optimize dispo. likely SNF diet:Puree, med crushed per s/s eval dvt ppx:SCD Full code VTE Mechanical Devices: Intermittant Pneumatic CD Time spent 35min Jesús Campos MD Apr 03, 2017 12:52
--- NOTE | 2017-04-03 13:15 | NUR ---
neuro pt feels "almost normal" now, she still feels like she is not thinking quite as clearly as she normally does, speech is a little delayed but clear, no problems with swallow noted, on Puree/thin fluids. 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 She was able to get up off bed and onto BSC with only SBA, maybe slightly unsteady
--- NOTE | 2017-04-03 13:59 | NUR ---
Social Work: Continued Discharge Planning D: EMR reviewed. SW met with pt and spouse at bedside to determine SNF choice. Pt and spouse chose [facility]. SW made referral to [facility] and gave access. PASSR completed, faxed, and placed in chart. PPW in chart. Aristeo from [facility] confirmed pt has been accepted with Dr. Sloan to follow. SW updated pt and spouse on acceptance. Pt and spouse agreeable to plan. A: Pt for whom a SNF has been deemed medically necessary. P: Per Aristeo at [facility], pt has been accepted at [facility] with Dr. Sloan to follow. Pt and family agreeable to placement and discharge plan. PASSR faxed and in chart. PPW in chart. Access given SW will continue to follow. LISA Avila
--- NOTE | 2017-04-03 18:46 | DRSVH ---
[facility] [address] [place] [address] Echocardiogram Report Name: HUNTER SPARROW WStudy Date: Height: 69 in Hospital Exam Location: [facility] Weight: 229 lb Gender: Female BSA: 2.2 m2 : 1950 Age: 66 yrs BP: 131/84 mmHg Reason For Study: CVA Ordering Physician: Performed By: Adelaida Ruiz Referring Physician: Lee Sloan Interpretation Summary 1. Normal left ventricular size, wall thickness and normal to hyperdynamic systolic function with an estimated EF of 65 to 70% 2. Small right ventricular cavity size with normal systolic function. 3. Aortic valve sclerosis without stenosis or insufficiency 4. Saline contrast showed no evidence for an interatrial shunt. Procedure: A two-dimensional transthoracic echocardiogram with color flow and Doppler was performed. The study quality was technically adequate. There is no prior echocardiogram noted for this patient. The patient was in normal sinus rhythm during the exam. Left Ventricle: The left ventricle is normal in size. There is normal left ventricular wall thickness. Mildly elevated outflow tract velocities. The ejection fraction is estimated to be 65-70%. The E/A ratio is reversed with an elevated E/E', suggesting impaired early relaxation of the left ventricle with possible increased filling pressures. Right Ventricle: Small ventricular cavity size. The right ventricular systolic function is normal. Atria: The left atrium is mildly dilated. Right atrial size is normal. Injection of contrast documented no interatrial shunt. Mitral Valve: The mitral valve leaflets appear borderline thickened, but open well. The mitral valve leaflets are slightly calcified. There is trace mitral regurgitation. Aortic Valve: The aortic valve opens well. There is mild aortic valve sclerosis. The aortic valve is trileaflet. No aortic regurgitation is present. Tricuspid Valve: The tricuspid valve leaflets are thin and pliable. There is a trace or physiologic amount of tricuspid regurgitation. Right ventricular systolic pressure is estimated to be 18 mmHg plus the clinically estimated CVP which cannot be estimated on this exam. Pulmonic Valve: The pulmonic valve is not well seen, but is grossly normal. There is no pulmonic valvular regurgitation. Great Vessels: The aortic root is normal size. The ascending aorta is mildly enlarged. The diameter of the ascending aorta is 4.12 cm. The inferior vena cava was not visualized. Pericardium/ Pleura There is no pericardial effusion. There is no pleural effusion. MMode/2D Measurements & Calculations LVIDd: 4.8 cm LA dimension: 4.7 cm RA long axis Ao root diam LVIDs: 2.4 cm FS: 49.3 % LA A2 area: 23.3 cm RA area Aortic Jxn: 2.8 cm IVSd: 1.1 cm LA A4 area: 23.9 cm asc Aorta Diam LVPWd: 0.92 cm LA length (vol) : 9.0 cm RA vol Ao Arch Diam (Prox LA vol: 85.9 ml : 12.6 ml Trans): 2.5 cm LA vol index RA : 5.8 mm/ : 39.3 ml/m2 RVDd major : 4.7 cm LV manuel. diameter/BSA LV sys. diameter/BSA RVD1 (basal) RVD2 (mid): 1.7 cm (cm/m^2): 2.2 (cm/m^2): 1.1 Doppler Measurements & Calculations Ao V2 max MV E max jesus alberto MV E/A: 0.61 TR max jesus alberto : 134.0 cm/sec : 64.8 cm/sec Med Peak E' Jesus Alberto : 212.5 cm/sec Ao max PG MV A max jesus alberto TR max PG : 7.2 mmHg : 105.5 cm/sec E/E' med: 15.4 : 18.1 mmHg Ao mean PG MV P1/2t: 90.7 msec Lat Peak E' Jesus Alberto PA V2 max : 104.1 cm/sec sev ratio E/E' lat: 8.1 PA mean PG E/e' average: 11.8 MV A dur: 0.13 sec PA Accel Time : 0.10 sec MV dec time MV P1/2t max jesus alberto Ao V2 mean LV V1 max PG : 0.31 sec : 85.2 cm/sec MVA(P1/2t): 2.4 cm2 Ao V2 VTI: 25.4 cm LV V1 VTI: 26.6 cm PA V2 mean : 63.1 cm/sec Reading Physician:06:45 PM
[2017-04-04 05:30] VITALS: BP 135/79; PULSE 80; RESP 17; O2SAT 96
[2017-04-04 05:54] VITALS: PULSE 80
--- NOTE | 2017-04-04 07:27 | NUR ---
Activity/improvements Pt speech remains somewhat delayed, activity increase as pt ambulated to BR 2x this shift. Some small incontinence of bm. No complaints of pain. Remains on insulin gtt. Care continues
[2017-04-04] MEDS ORDERED: Glucose 40% Oral Gel 15 Gm Tube PO PRN (07:45)
[2017-04-04] MEDS ORDERED: Insulin LISPRO 300 Unit/3 mL Inj SUBQ SCH (08:00)
[2017-04-04] MEDS: Insulin LISPRO High-Dose Scale SUBQ SCH ×2 (08:00→11:12)
[2017-04-04] MEDS: Amoxicillin-Clav 500-125 mg Tablet PO SCH (08:12)
[2017-04-04 08:28] VITALS: BP 160/83; PULSE 73; RESP 16; O2SAT 96
[2017-04-04] MEDS ORDERED: Insulin GLARgine 100 Unit/mL Syringe SUBQ SCH (08:30)
[2017-04-04] MEDS ORDERED: AMOX1TAB11 PO (10:04)
[2017-04-04] MEDS ORDERED: ASPI81TA3 PO (10:04)
[2017-04-04 10:06] VITALS: PULSE 110
--- NOTE | 2017-04-04 10:12 | PCM.DIMED ---
Discharge Instructions Date of Service Apr 04, 2017 Dates of Hospitalization Apr 01, 2017 at 15:19 Discharge Diagnosis Discharge Diagnosis Acute ischemic stroke, in [place] territories, mild deficit on Left side Urinary tract infection with Beta streptococcus Acute kidney injury uncontrolled diabetes Medication Instructions Additional med instructions Please note that your aspirin dose was changed to 81mg daily Please continue your home insulin regimen Please continue antibiotics Augmentin 2more days Given your kidney injury, HCTZ dose was changed to 12.5mg from 25mg, it could be adjusted by your PCP later in the clinic Diet Discharge Diet: Heart Healthy, Diabetic Activity Discharge Activity: No restrictions Patient Instructions Patient Instructions you were hospitalized with symptoms concerning for stroke. MRI was consistent to acute ischemic(blockage) stroke. You also found to have urinary tract infection. Please note that you have to continue to work with physical therapy until you gain more motor strength. you are discharged to Short term rehab. Please note that your sugar was very difficult to control, recommended further evaluation with [facility]. harms of uncontrolled diabetes discussed extensively as well. Please follow up with your doctor in 2weeks Follow-up Provider: Gadiel Sloan MD Follow-up with PCP in: 2 weeks Jesús Campos MD Apr 04, 2017 10:12
[2017-04-04] MEDS ORDERED: HYDR25TA4 PO (10:13)
--- NOTE | 2017-04-04 11:20 | NUR ---
Social Work: Readiness for Discharge D: EMR reviewed. Pt is on day 3 of hospitalization. Per MD in AM multi-disciplinary rounds, pt will discharge today. SW placed T/C to [place] from [facility] and confirmed pt will be transported at 1400 today. SW confirmed transport time with MD, RN, pt, and spouse. All agreeable to transport time and discharge to [facility] with Dr. Sloan to follow. SW faxed discharge packet, rx, body form, and PASSR to [facility]. SW completed transfer packet at left at nurses station. SW will continue to follow. A: Pt for whom a SNF has been deemed medically necessary. P: SW confirmed with [facility] that [facility] will provide transport for pt at 1400 today. SW faxed transfer ppw and left completed transfer packet at nurses station for pick-up. MD, RN, pt, and spouse updated on transfer time and agreeable to plan. SW will continued to follow. LISA Avila
--- NOTE | 2017-04-04 13:38 | PCM.DC.MED ---
Discharge Summary Date of Service Apr 04, 2017 Dates of Hospitalization Date of Hospital Admission Apr 01, 2017 at 15:19 Date of Discharge: Apr 04, 2017 Providers: Admitting Physician: Jesús Daugherty MD Primary Care Physician: Gadiel Sloan MD Attending Physician: Jesús Daugherty MD Diagnosis at Time of Discharge Diagnosis at Time of Discharge acute dx Acute ischemic stroke, in Rt [place] territories, mild deficit on Left side Urinary tract infection with Beta streptococcus Acute kidney injury uncontrolled diabetes ground level fall Chronic dx HTN cognitive dysfunction Consultations neurology, Procedures XRay, CTs & MRIs PROCEDURE: CT BRAIN WITHOUT CONTRAST ([id number]) INDICATIONS: Stroke TECHNIQUE: Noncontrast 4.5 mm thick angled axial sections acquired from the foramen magnum to the vertex, with coronal reformats. COMPARISON: None. FINDINGS: Image quality: Excellent. CSF spaces: Basal cisterns are patent. No extra-axial fluid collections. The ventricles are symmetric in size and shape. Brain: No intracranial bleeds or masses. There is cerebral volume loss for age , with resultant ventricular and sulcal prominence. There are periventricular and deep white matter chronic small vessel ischemic changes. There is intracranial internal carotid artery atherosclerosis. There is a small focus of old left thalamic lacunar ischemia. Skull and face: Calvarium and visualized facial bones appear intact, without suspicious lesions. Sinuses: Visualized sinuses and mastoids are clear. IMPRESSION: 1. No acute intracranial process. 2. Mild atrophy and chronic microvascular ischemic changes. Dictated by: Philly Reeves M.D. on 04/01/2017 at 11:43 Approved by: Philly Reeves M.D. on 04/01/2017 at 11:44 PROCEDURE: X-RAY CHEST ONE VIEW, PORTABLE ([id number]) INDICATIONS: 66 year-old female with weakness. TECHNIQUE: One view of the chest was acquired. COMPARISON: None. FINDINGS: Surgical changes and devices: Bilateral upper abdominal surgical clips are present. Lungs and pleura: No pleural effusions or pneumothorax. Lungs are clear. Mediastinum: Mediastinal contours appear normal. Heart size is normal. Bones and chest wall: No suspicious bony lesions. Overlying soft tissues appear unremarkable. IMPRESSION: No acute cardiopulmonary disease. Dictated by: Naun Ferrell M.D. on 04/01/2017 at 15:48 Approved by: Naun Ferrell M.D. on 04/01/2017 at 15:49 PROCEDURE: MRI BRAIN WITHOUT CONTRAST ([id number]) INDICATIONS: SPELLS OF ALTERED ALERTNESS WITH JAW CHANGES, TIA TECHNIQUE: Non-contrast axial T1 spin echo, axial T2 fast spin echo, sagittal and axial FLAIR, coronal T2 fast spin echo, axial gradient echo, axial diffusion and ADC through the brain. COMPARISON: Outside Film, MR, MR IAC'S MASTOIDS W&WO CON, 11/26/2008, 8:21. MR , STROKE PROTOCOL (PNL), 01/17/2009, 7:58. [place] Jt, MR, MR BRAIN WO CON, 09/11/2015, 13:50. FINDINGS: Image quality: Excellent. CSF spaces: Ventricles appear symmetric in size and shape. Basal cisterns are patent. No extra-axial fluid collections. Brain: No intracranial bleeds or mass effects. There is cerebral volume loss for age. There are moderate periventricular and deep white matter chronic small vessel ischemic changes which are not significantly changed compared to . Brainstem appears normal. Diffusion-weighted images show no acute ischemic insults. Chronic, small, right centrum semiovale lacunar infarct is stable compared to 09/11/2015. Punctate foci of susceptibility weighted hypointensities noted in the thalami bilaterally, the frontal lobes bilaterally the basal ganglia and in the left cerebral hemisphere. Normal intravascular flow voids are present. Skull and face: Calvarial bone marrow is normal in signal. Orbits are normal. Sinuses: Small left maxillary sinus mucous retention cyst versus polyp is noted. mastoids are clear. IMPRESSION: 1. No acute intracranial disease process. 2. Mild, diffuse volume loss. 3. Moderate periventricular and subcortical white matter chronic microvascular ischemic changes. 4. Chronic right anterior centrum semiovale infarct. 5. Punctate susceptibility weighted hypointensities involving the thalami, basal ganglia, frontal lobes and the left cerebral hemisphere. Finding is nonspecific but is most concerning for chronic hypertensive microbleeds. Please correlate with clinical data. Dictated by: Lucrecia Jhaveri MD, PhD on 03/19/2017 at 16:33 Approved by: Lucrecia Jhaveri MD, PhD on 03/19/2017 at 16:42 Cardiac Echo Impression Echocardiogram Report Name: HUNTER SPARROW WStudy Date: Height: 69 in Hospital Exam Location: [facility] Weight: 229 lb Gender: Female BSA: 2.2 m2 : 1950 Age: 66 yrs BP: 131/84 mmHg Reason For Study: CVA Ordering Physician: Performed By: Adelaida Ruiz Referring Physician: Lee Sloan Interpretation Summary 1. Normal left ventricular size, wall thickness and normal to hyperdynamic systolic function with an estimated EF of 65 to 70% 2. Small right ventricular cavity size with normal systolic function. 3. Aortic valve sclerosis without stenosis or insufficiency 4. Saline contrast showed no evidence for an interatrial shunt. Brief History HPI obtained on 04/01 66 yo F w/ hx of TIA, uncontrolled DM, HTN, HLD p/w generalized weakness, changes of mental status, Hx obtained mostly by the at the bedside. He stated that she fell down 8days ago, since then she was progressively weaker, being more drowsy. patient at baseline is able to walk w/o assistance going shopping with her grandaughter. noticed, pt became slow to respond, soft spoken.Weakness was on and off, pt was able to walk 3-4days ago during last weekends, since this week. patient was getting weaker, came to see PCP today. noticed more weakness on left side, suspected acute stroke, sent patient to ED> In ED, VS 108 /78, 103, 16, 97% on RA, afebrile, labs showed mild wbc, poly61, bun30/cr1.4, xve850, Na133, Cl92. UA showed trace leukEST, [id number], few bacteria. patient received one dose of Rocephin. seen at ED at the bed side. patient stated that she was way to her sofa, stumbling to the left side when she fell. hurt her Lt knee. denied LOC per , headache, but was mildly lightheaded, denied chest pain, sob, palpitation, blurry vision.Patient also stated that she had more frequent urination 5-6times/d, which was worse than baseline incontinence, also noticed urgency, no dysuria. pt also had diarrhea since last week until 2days, had normal BM yesterday. pt currently denied any LORA, lightheadedness. pt has decreased appetite with weakness, but able to swallow Banana this morning. compliant to all her meds, including insulin. since this week, glc has been 200s per . patient did inject by herself. ROS: no fever, chills, cough, sputum, Ofnote. Patient has follow-up with Dr. Torres, last seen in 03/04, noted cognitive problems due to multifactorial in the setting of microvascular dz and poorly controlled DM. recommended cognitive rehab and speech tx, referred to neuro-psychology. For spells of decreased attentiveness, suspected probable TIA or seizure or both , EEG ordered. For diabetic neuropathy recommended to take gabapentin 3pills at bed times. MRI brain 09/2015 no evidence of stroke but moderate microvascular micro-bleeds likely due to HTN, again MRI repeated 03/19 showed Punctate susceptibility weighted hypointensities involving the thalami, basal ganglia, frontal lobes and the left cerebral hemisphere. US carotid was <50% stenosis consulted, recommended holding aspirin and get MRI. Hospital Course Acute, active Decrease of attentiveness, subtle left sided weakness, presentation was more suggestive of toxic/metabolic encephalopathy on admission or possible ICH given chronic microbleeds from recent MRI. CTH showed no acute findings, however, MR stroke protocol showed new ischemic stroke in Rt [place] territories, likely explain her recent decline of function. patient received aspirin 325mg then 162mg. pt was continue 81mg daily. patient was seen by PT,OT.speech/swallow, deemed safe to d/c to SNF. BP meds were held for permissive HTN, however, remained normal, likely represent subacute onset stroke(regardless patient was out of window for tPA on admission). TTE didn't show vegetation, shunt, thrombi. Patient was asked to follow up with . UTI, POA, UA+ for pyuria, bacteriuria. labs mildly elevated leukocytosis, resolved, no SIRS, UCX showed beta strep, patient received 2days of Rocephin, switched to Augmentin to finish 5days course. ground level fall >8days ago, likely in the setting of acute stroke. DM, POA, a1c>10 in Apr, uncontrolled, glc has been lebile 60-500 per hx, fsg was 400 on admission, pt was on insulin gtt for non-DKA protocol, then switched to [id number] bid, lispro sliding scale. Given uncontrolled DM being high risks for future stroke, patient was strongly encouraged to see marriage counselor minister for better glucose management. AIMEE, POA, likely prerenal etiology in the setting of poor oral intake, possibly with two home bp meds:HCTZ, ACEI. Cr normalized on d/c. patient was asked to decrease HCTZ to 12.5mg until renal functions are more stable. Chronic dx HTN, continued bp meds cognitive dysfunction, will follow up with rec, continued prozac, memantin Exam Vital Signs (Last) Date Time Temp Pulse Resp B/P Pulse Ox O2 Delivery O2 Flow Rate FiO2 04/04/17 10:21 Room Air 04/04/17 10:06 110 04/04/17 08:28 36.7 16 160/83 96 Exam NAD, comfortably laying down on the bed no JVD, MMM, no LAD RRR, nl s1, s2 no mrg CTAB, no w,c S,ND,NT,normoactive BS+ warm, no edema, pulses 2/2 Neuro:speech coherent,AAOX3, appropriately answered, CN2-12 grossly intact Test 04/01/17 14:31 04/01/17 15:15 04/02/17 05:35 04/03/17 05:40 Prothrombin Time 10.7sec (8.1-12.5) Prothromb Time International Ratio 1.00ratio Activated Partial Thromboplast Time 26.6sec (22.8-33.0) Troponin T < 0.010ug/L (0.0-0.011) Urine Color Yellow (YELLOW) Urine Appearance Clear (CLEAR,HAZY) Urine pH 5.5 (5.0-8.0) Urine Specific [place] 1.015 (1.003-1.035) Urine Protein Tracemg/dL (NEG,TRACE) Urine Glucose (UA) 1000mg/dL (NEGATIVE) Urine Ketones Negativemg/dL (NEGATIVE) Urine Occult Blood Negative (NEGATIVE) Urine Nitrite Negative (NEGATIVE) Urine Bilirubin Negative (NEGATIVE) Urine Urobilinogen Normalmg/dL (NORMAL) Urine Leukocyte Esterase Trace (NEGATIVE) Urine RBC 0-2/hpf (0-2) Urine WBC 11-50/hpf (0-5) Urine Epithelial Cells Few/hpf (NONE-MOD) Urine Crystals None seen (NONE SEEN) Urine Bacteria Few/hpf (NONE-FEW) Urine Hyaline Casts None/lpf (NONE) Urine Granular Casts None seen (NONE SEEN) Urine Waxy Casts None seen (NONE SEEN) Urine Red Blood Cell Casts None seen (NONE SEEN) Urine White Blood Cell Casts None seen (NONE SEEN) Urine Mucus None seen (None Seen) Urine Trichomonas None seen (NONE SEEN) Urine Yeast None (NONE SEEN) Urinalysis Comment None Urine Culture Reflexed Indicated White Blood Count 9.8th/mm3 (3.8-10.1) Red Blood Count 5.27mil/mm3 (3.90-5.20) Hemoglobin 14.2g/dL (12.0-15.6) Hematocrit 42.4% (35.0-46.0) Mean Corpuscular Volume 80.5fL (81-100) Mean Corpuscular Hemoglobin 26.9pg (27.0-35.0) Mean Corpuscular Hemoglobin Concent 33.5% (32.0-37.0) Red Cell Distribution Width 15.2% (12.3-15.4) Platelet Count 176bil/L (150-400) Neutrophils (%) (Auto) 52.6% (40-74) Lymphocytes (%) (Auto) 36.2% (14-46) Monocytes (%) (Auto) 8.6% (4-12) Eosinophils (%) (Auto) 2.0% (0-5) Basophils (%) (Auto) 0.3% (0-3) Phosphorus Level 4.6mg/dL (2.5-4.9) Magnesium Level 2.1mg/dL (1.6-2.6) Triglycerides Level 85mg/dL (0-149) Cholesterol Level 79mg/dL (100-199) LDL Cholesterol, Calculated 20.000mg/dL (0-99) VLDL Cholesterol 17.000mg/dL HDL Cholesterol 42mg/dL (>39) Cholesterol/HDL Ratio 1.88 (0.0-4.4) Procalcitonin 0.14ng/mL (0.00-0.08) Sodium Level 138mEq/L (134-144) Potassium Level 4.3mEq/L (3.5-5.2) Chloride Level 97mEq/L (97-108) Carbon Dioxide Level 27mmol/L (18-29) Blood Urea Nitrogen 22mg/dL (8-27) Creatinine 0.84mg/dL (0.57-1.00) Estimat Glomerular Filtration Rate 97mL/min (>59) Glucose Level 191mg/dL (60-99) Calcium Level 9.1mg/dL (8.5-10.1) Total Bilirubin 0.8mg/dL (0.0-1.2) Aspartate Amino Transf (AST/SGOT) 50U/L (0-50) Alanine Aminotransferase (ALT/SGPT) 39U/L (0-32) Alkaline Phosphatase 80U/L (25-165) Total Protein 6.6g/dL (6.4-8.4) Albumin 3.3g/dL (3.4-5.0) Discharge Medications Discharge Medications Amoxicillin/Clav K 500-125 mg (Amoxicillin/Clav K 500-125 mg) 1 Each Tablet 1 TAB PO BID Prescribed by: JESÚS DAUGHERTY MD Aspirin Chew (Aspirin Chew) 81 Mg Chew 81 MG PO DAILY Prescribed by: JESÚS DAUGHERTY MD Fluoxetine (Prozac) 20 Mg Capsule 20 MG PO DAILY (Reported) Gabapentin (Gabapentin) 300 Mg Capsule 600 MG PO HS (Reported) Hydrochlorothiazide (Hydrochlorothiazide) 25 Mg Tablet 12.5 MG PO DAILY Prescribed by: JESÚS DAUGHERTY MD Insulin Detemir (Levemir Flextouch) 100 Unit/1 Ml Insuln.pen 60 UNIT SQ BID ( Reported) Insuln Asp Prt/Insulin Aspart (NovoLOG 70/30 U100 Insulin Flexpen) 100 Unit/Ml Unit 34 UNIT SUBQ TIDWM (Reported) Lisinopril (Lisinopril) 20 Mg Tablet 20 MG PO DAILY (Reported) Memantine (Namenda) 10 Mg Tablet 5 MG PO BID (Reported) Pravastatin (Pravastatin) 20 Mg Tablet 20 MG PO HS (Reported) Tolterodine Tartrate ER (Detrol LA) 4 Mg Capsule 4 MG PO DAILY (Reported) Additional med instructions Please note that your aspirin dose was changed to 81mg daily Please continue your home insulin regimen Please continue antibiotics Augmentin 2more days Given your kidney injury, HCTZ dose was changed to 12.5mg from 25mg, it could be adjusted by your PCP later in the clinic Followup Plan Disposition: SNF Discharge Diet: Heart Healthy, Diabetic Discharge Activity: No restrictions Patient Instructions you were hospitalized with symptoms concerning for stroke. MRI was consistent to acute ischemic(blockage) stroke. You also found to have urinary tract infection. Please note that you have to continue to work with physical therapy until you gain more motor strength. you are discharged to Short term rehab. Please note that your sugar was very difficult to control, recommended further evaluation with Business Applications Specialist. harms of uncontrolled diabetes discussed extensively as well. Please follow up with your doctor in 2weeks Follow-up Provider: Gadiel Sloan MD Follow-up with PCP in: 2 weeks Time spent 65min Jesús Daugherty MD Apr 04, 2017 13:38
--- NOTE | 2017-04-04 13:41 | NUR ---
Social Work: Discharge D: EMR reviewed. Pt is on day 3 of hospitalization. Per MD in AM multi-disciplinary rounds, pt will discharge today. SW placed T/C to [place] from [facility] and confirmed pt will be transported at 1400 today. SW confirmed transport time with MD, RN, pt, and spouse. All agreeable to transport time and discharge to [facility] with Dr. Sloan to follow. SW faxed discharge packet, rx, body form, and PASSR to [facility]. SW completed transfer packet at left at nurses station. SW will continue to follow. A: Pt for whom a SNF has been deemed medically necessary. P: SW confirmed with [facility] that [facility] will provide transport for pt at 1400 today. SW faxed transfer ppw and left completed transfer packet at nurses station for pick-up. MD, RN, pt, and spouse updated on transfer time and agreeable to plan. SW will continued to follow. LISA Avila
--- NOTE | 2017-04-04 14:05 | NUR ---
DISCHARGE Patient is alert and oriented X 4. Answers questions slowly. Left side weakness persists. Denies pain. Tolerating liquids PO and her diet fairly. Denies nausea. No emesis noted. Denies SOB. Patient is able to get OOB to the [facility] with 1 PA and the FWW. IV saline lock d/cd. Discharge report was given to the admit RN in [facility]. Her is aware of the transfer. Discharged to [facility] via cabulance with all her personal belongings.
== END 2017-04-04 14:05 | DRG 65 ==
LOC: SED 11:19 → OBSVTOIN 15:19 → OSC 15:19
PROVIDERS: ADMIT Internal Medicine; ATTEND Internal Medicine
DX: I63.9 Cerebral infarction, unspecified (principal); N39.0 Urinary tract infection, site not specified; G81.94 Hemiplegia, unspecified affecting left nondominant side; N17.9 Acute kidney failure, unspecified; I10 Essential (primary) hypertension; E11.65 Type 2 diabetes mellitus with hyperglycemia; E86.0 Dehydration; R40.2362 Coma scale, best motor response, obeys commands, at arrival to emergency department; R40.2142 Coma scale, eyes open, spontaneous, at arrival to emergency department; R40.2242 Coma scale, best verbal response, confused conversation, at arrival to emergency department; R47.01 Aphasia; G47.00 Insomnia, unspecified; B95.1 Streptococcus, group B, as the cause of diseases classified elsewhere; Z79.82 Long term (current) use of aspirin; Z79.4 Long term (current) use of insulin